=== PATIENT | male | born 1965 | race Two or more races ===

== ENCOUNTER 2019-06-15 09:06 | Outpatient (CLI) | payer OTHER | END 2019-06-15 21:00 | disposition home or self-care (01) | LOC: LAB SALUS 09:06 | DX: Z13.220 Encounter for screening for lipoid disorders (principal); Z11.59 Encounter for screening for other viral diseases; Z13.1 Encounter for screening for diabetes mellitus; Z11.4 Encounter for screening for human immunodeficiency virus [HIV]; Z72.51 High risk heterosexual behavior; Z11.3 Encounter for screening for infections with a predominantly sexual mode of transmission; Z12.11 Encounter for screening for malignant neoplasm of colon ==

== ENCOUNTER 2019-06-15 10:21 | Outpatient (CLI) | payer OTHER | END 2019-06-15 10:38 | disposition home or self-care (01) | LOC: EKG 10:21 | DX: Z13.6 Encounter for screening for cardiovascular disorders (principal); Z00.00 Encounter for general adult medical examination without abnormal findings ==

== ENCOUNTER 2022-07-29 12:33 | Outpatient (CLI) | payer OTHER | END 2022-07-29 12:42 | disposition home or self-care (01) | LOC: SONOGRAMA 12:33 | PROVIDERS: ATTEND Urology | DX: R97.20 Elevated prostate specific antigen [PSA] (principal); R79.82 Elevated C-reactive protein (CRP) ==

== ENCOUNTER 2022-08-12 15:44 | Outpatient (CLI) | payer OTHER | END 2022-08-12 15:52 | disposition home or self-care (01) | LOC: LAB 15:44 | PROVIDERS: ATTEND Urology | DX: R97.20 Elevated prostate specific antigen [PSA] (principal) ==

== ENCOUNTER 2022-08-30 07:33 | Outpatient (CLI) | payer OTHER | END 2022-08-30 07:40 | disposition home or self-care (01) | LOC: SONOGRAMA 07:33 | PROVIDERS: ATTEND Urology | DX: R97.20 Elevated prostate specific antigen [PSA] (principal) ==

== ENCOUNTER 2022-12-10 07:12 | Outpatient (CLI) | payer OTHER | END 2022-12-10 07:22 | disposition home or self-care (01) | LOC: NUCLEAR 07:12 | PROVIDERS: ATTEND Urology | DX: C61 Malignant neoplasm of prostate (principal); I20.8 Other forms of angina pectoris; I25.84 Coronary atherosclerosis due to calcified coronary lesion; I65.1 Occlusion and stenosis of basilar artery ==

== ENCOUNTER 2022-12-24 07:38 | Outpatient (CLI) | payer OTHER | END 2022-12-24 07:42 | disposition home or self-care (01) | LOC: NUCLEAR 07:38 | PROVIDERS: ATTEND Urology | DX: I65.29 Occlusion and stenosis of unspecified carotid artery (principal); I65.1 Occlusion and stenosis of basilar artery ==

== ENCOUNTER 2023-03-04 11:28 | Outpatient (CLI) | payer OTHER | END 2023-03-04 11:42 | disposition home or self-care (01) | LOC: TOM 11:28 | DX: R51.9 Headache, unspecified (principal); R55 Syncope and collapse ==

== ENCOUNTER 2023-03-17 07:00 | Inpatient (IN) | payer OTHER ==
[~2023-03-17] VITALS: Ht 170.2 cm; Wt 72.6 kg
[2023-03-17 08:27] LABS: HEMOGLOBIN 15.5 g/dL (13-16.00); MEAN CORPUSCULAR HEMOGLOBIN 30.2 pg (27.00-32.0); MEAN CORPUSCULAR HGB CONC 34.4 g/dl (32.0-36.0); PLATELET COUNT 302 K/uL (150-450); RED BLOOD COUNT 5.11 M/uL (4.00-6.00); RED CELL DISTRIBUTION WIDTH 14.1 % (11.5-14.5)
[2023-03-17 08:48] LABS: PH,URINE 6.5 (5.0-8.0); URINE APPEARANCE Clear; URINE BILIRRUBIN Negative (NEGATIVE); URINE BLOOD Negative; URINE COLOR Yellow; URINE GLUCOSE Negative (NEGATIVE); URINE LEUKOCYTE Negative; URINE NITRATE Negative; URINE PROTEIN Negative (NEGATIVE); URINE UROBILINOGEN 0.2 E.U./dl
[2023-03-17 09:06] LABS: URINE BACTERIA 3.7 uL (0.0-1933); URINE EPITHELIAL CELLS 0.3 uL (0.0-38.8); URINE RBC 1.2 uL (0.0-20.8); URINE WBC 0.7 uL (0.0-23.2)
[2023-03-17 09:09] LABS: CALCIUM 9.7 mg/dL (8.5-10.1); CREATININE SERUM 1.49 mg/dL (0.70-1.30); GFR 48.61; POTASSIUM 5.63 mEq/L (3.5-5.1)
[2023-03-17 09:12] LABS: INR 0.99; PARTIAL THROMBOPLASTIN TIME 26.9 SECONDS (22.0-34.0); PROTHROMBIN TIME 10.4 SECONDS (9.0-11.5)
[2023-03-22 08:17] LABS: CALCIUM 8.6 mg/dL (8.5-10.1); CREATININE SERUM 1.47 mg/dL (0.70-1.30); GFR 49.37; POTASSIUM 4.75 mEq/L (3.5-5.1)
[2023-03-22 08:45] LABS: HEMATOCRIT 39.5 % (39.0-48.0); HEMOGLOBIN 13.8 g/dL (13-16.00); MEAN CELL VOLUME 87.2 fL (80.0-100.00); MEAN CORPUSCULAR HEMOGLOBIN 30.6 pg (27.00-32.0); PLATELET COUNT 237 K/uL (150-450); RED BLOOD COUNT 4.53 M/uL (4.00-6.00); RED CELL DISTRIBUTION WIDTH 13.6 % (11.5-14.5)
[2023-03-23 07:50] LABS: HEMATOCRIT 41.9 % (39.0-48.0); HEMOGLOBIN 14.5 g/dL (13-16.00); MEAN CELL VOLUME 87.6 fL (80.0-100.00); MEAN CORPUSCULAR HEMOGLOBIN 30.3 pg (27.00-32.0); MEAN CORPUSCULAR HGB CONC 34.6 g/dl (32.0-36.0); PLATELET COUNT 291 K/uL (150-450); RED BLOOD COUNT 4.79 M/uL (4.00-6.00); RED CELL DISTRIBUTION WIDTH 13.8 % (11.5-14.5)
[2023-03-23 08:35] LABS: CALCIUM 9.3 mg/dL (8.5-10.1); CREATININE SERUM 1.64 mg/dL (0.70-1.30); GFR 43.52; MAGNESIUM 2.4 mg/dL (1.8-2.4); PHOSPHOROUS 2.9 mg/dL (2.5-4.9); POTASSIUM 4.86 mEq/L (3.5-5.1)
== END 2023-03-23 14:23 | disposition home or self-care (01) | DRG 708 ==
LOC: O/R 03-21 05:22 → SURH 03-21 07:00 → SURG 03-21 14:58
PROVIDERS: Internal Medicine Geriatric Medicine; ADMIT Urology; ATTEND Urology
PROC: 8E0W4CZ Robotic Assisted Procedure of Trunk Region, Percutaneous Endoscopic Approach (ICD-10-PCS; 2023-03-21)
PROC: 0VT04ZZ Resection of Prostate, Percutaneous Endoscopic Approach (ICD-10-PCS; principal; 2023-03-21 07:00)
DX: C61 Malignant neoplasm of prostate (principal)

== ENCOUNTER 2023-04-01 10:20 | Outpatient (CLI) | payer OTHER | END 2023-04-01 14:53 | disposition home or self-care (01) | LOC: SONOGRAMA 10:20 | PROVIDERS: ATTEND Urology | DX: R31.1 Benign essential microscopic hematuria (principal) ==

== ENCOUNTER 2023-05-30 07:47 | Outpatient (CLI) | payer OTHER | END 2023-05-30 09:40 | disposition home or self-care (01) | LOC: TOM 07:47 | PROVIDERS: ATTEND Urology | DX: C61 Malignant neoplasm of prostate (principal); N36.1 Urethral diverticulum ==

== ENCOUNTER 2024-01-31 15:04 | Emergency (ER) | payer OTHER ==
[~2024-01-31] VITALS: Ht 170.2 cm; Wt 71.2 kg
[2024-01-31] MEDS ORDERED: ORPHENADRINE CITRATE 30 MG/ML AMPUL IM STA (16:17)
[2024-01-31] MEDS ORDERED: DEXAMETHASONE SODIUM PHOSPHATE 4 MG/ML VIAL IM STA (16:17)
[2024-01-31] MEDS ORDERED: DEXAMETHASONE SODIUM PHOSPHATE 4 MG/ML VIAL ONE (16:24)
[2024-01-31] MEDS ORDERED: ORPHENADRINE CITRATE 30 MG/ML AMPUL ONE (16:24)
[2024-01-31 16:44] LABS: URINE APPEARANCE Clear; URINE BILIRRUBIN Negative (NEGATIVE); URINE BLOOD Negative; URINE COLOR Yellow; URINE GLUCOSE Negative (NEGATIVE); URINE KETONE Negative (NEGATIVE); URINE LEUKOCYTE Negative; URINE NITRATE Negative; URINE PROTEIN Negative (NEGATIVE); URINE UROBILINOGEN 0.2 E.U./dl
[2024-01-31 16:50] LABS: HEMOGLOBIN 14.1 g/dL (13-16.00); MEAN CELL VOLUME 88.8 fL (80.0-100.00); MEAN CORPUSCULAR HEMOGLOBIN 30.6 pg (27.00-32.0); MEAN CORPUSCULAR HGB CONC 34.5 g/dl (32.0-36.0); PLATELET COUNT 332 K/uL (150-450); RED BLOOD COUNT 4.61 M/uL (4.00-6.00); RED CELL DISTRIBUTION WIDTH 13.7 % (11.5-14.5)
[2024-01-31 17:24] LABS: CREATININE SERUM 1.43 mg/dL (0.70-1.30); GFR 50.79; POTASSIUM 4.28 mEq/L (3.5-5.1)
[2024-01-31 18:00] LABS: URINE BACTERIA 0 uL (0.0-1933); URINE RBC 0.4 uL (0.0-20.8); URINE WBC 0.4 uL (0.0-23.2)
== END 2024-01-31 19:27 | disposition home or self-care (01) ==
LOC: ER 15:06
DX: M62.838 Other muscle spasm (principal)